=== PATIENT | male | born 1975 | race Caucasian/White ===

== ENCOUNTER 2016-12-01 20:18 | Emergency (ER) | payer BC ==
[2016-12-01] MEDS ORDERED: Sodium Chloride 0.9% 1,000 ML ONE (20:44)
[2016-12-01 21:08] LABS: Anion Gap 13 mmol/L (10-20); BUN (Urea Nitrogen) 16 mg/dL (8.9-20.6); Calc. Creatinine Clearance 0 mL/min (70-130); Calcium 8.8 mg/dL (7.8-10.44); Carbon Dioxide 27 mmol/L (22-29); Chloride 105 mmol/L (98-107); Estimated GFR-MDRD 69; Glucose 100 mg/dL (70-105); Potassium 3.5 mmol/L (3.5-5.1); Sodium 141 mmol/L (136-145)
[2016-12-01 21:12] LABS: #Basophils 0.1 thou/uL (0.0-0.2); #Lymphocytes 1.4 thou/uL (1.20-3.40); #Monocytes 0.5 thou/uL (0.11-0.59); %Basophils 1.4 % (0.0-1.0); %Eosinophils 1.1 % (0.0-10.0); %Lymphocytes 35.4 % (21.0-51.0); %Monocytes 11.6 % (0.0-10.0); %Neutrophils 50.5 % (42.0-75.0); Band 14 % (5-11); Hemoglobin 15.7 g/dL (14.0-18.0); Lymphocytes 40 % (21-51); MDiff Complete? YES; Mean Corpuscular HGB CONC 32.3 g/dL (32.0-36.0); Mean Corpuscular Hemoglobin 28.2 pg (27.0-31.0); Mean Corpuscular Volume 87.1 fl (80.0-94.0); Mean Platelet Volume 7.8 fL (7.4-10.4); Metamyelocyte 1 % (0-0); Monocytes 8 % (0-10); Neutrophil 35 % (42-75); PLT Morphology Comment Appears Adequate; Platelet Count 194 thou/uL (130-400); RBC Distribution Width 12.3 % (11.5-14.5); RBC Morphology Normal; Reactive Lymphocytes 2 % (0-10); Red Blood Cell (RBC) Count 5.56 mill/uL (4.70-6.10); White Blood Cell (WBC) Count 4.1 thou/uL (4.8-10.8)
[2016-12-01] MEDS ORDERED: Ondansetron HCl/PF 4 MG/2 ML Vial ONE (21:27)
[2016-12-01 21:39] LABS: Bilirubin Negative (Negative); Blood, Urine Negative (Negative); Clarity Clear (Clear); Glucose, Urine (Dipstick) Negative (Negative); Leukocyte Negative (Negative); Nitrite Negative (Negative); Protein, Urine (Dipstick) Negative (Neg-Trace); Specific Gravity, Urine 1.025 (1.005-1.030); Urobilinogen 0.2 mg/dL (0.2-1.0); pH, Urine 5.5 (5.0-9.0)
[2016-12-01] MEDS ORDERED: Acetaminophen 500 MG TAB ONE (22:08)
== END 2016-12-01 22:45 | disposition home or self-care (01) ==
LOC: NAV ERS 20:18
DX: K52.9 Noninfective gastroenteritis and colitis, unspecified (principal); F41.9 Anxiety disorder, unspecified; F32.9 Major depressive disorder, single episode, unspecified; Z79.899 Other long term (current) drug therapy
CPT/HCPCS: 80048; 81003; 85025; 96361; 96374; J2405; J7050

== ENCOUNTER 2022-02-04 13:37 | Outpatient (CLI) | payer BC | END 2022-02-04 13:38 | disposition home or self-care (01) | LOC: NAV RAD 13:37 | PROVIDERS: ATTEND Family Medicine | DX: J06.9 Acute upper respiratory infection, unspecified (principal) | CPT/HCPCS: 71046 ==

== ENCOUNTER 2022-12-16 18:05 | Emergency (ER) | payer OTHER, BC ==
[2022-12-16] MEDS ORDERED: Boostrix 0.5 ML (Tdap) VIAL (>/=7 yrs of age) ONE (18:23)
[2022-12-16] MEDS ORDERED: Lidocaine 1% (PF) 30 ML VIAL ONE (18:23)
[2022-12-16] MEDS ORDERED: Bacitracin 1 PK ONE (18:45)
== END 2022-12-16 18:56 | disposition home or self-care (01) ==
LOC: NAV ERS 18:05
DX: S61.210A Laceration without foreign body of right index finger without damage to nail, initial encounter (principal); W26.8XXA Contact with other sharp object(s), not elsewhere classified, initial encounter
CPT/HCPCS: 12001; 90471; 90715; J2001

== ENCOUNTER 2022-12-26 13:59 | Emergency (ER) | payer OTHER, BC | END 2022-12-26 14:20 | disposition home or self-care (01) | LOC: NAV ERS 13:59 | DX: S61.210D Laceration without foreign body of right index finger without damage to nail, subsequent encounter (principal) ==